=== PATIENT | male | born 1990 | race Caucasian/White ===

== ENCOUNTER → 2022-11-22 06:13 | Outpatient (CLI) | payer OTHER, SELFPAY ==
--- NOTE | 2022-11-22 06:25 | DI.US.S_ITS ---
PROCEDURE: US SCROTUM INDICATIONS: Lower abdominal/left testicle pain TECHNIQUE: Real-time scanning was performed of the scrotum and testicles, with image documentation. Color and pulse Doppler interrogation was performed of both testicles. COMPARISON: None. FINDINGS: Right: Testicle is normal in size at 5.1 x 2.3 x 3.7 cm, and homogenous in echotexture. Epididymis is normal in overall size and morphology. No hydrocele or varicoceles. Overlying scrotal skin is normal in thickness. Left: Testicle is normal in size at 5.8 x 2.5 x 4.0 cm, and homogeneous in echotexture. Epididymis is normal in overall size and morphology. No hydrocele or varicoceles. Overlying scrotal skin is normal in thickness. Doppler: Color and pulse Doppler demonstrate normal and symmetric arterial flow in both testicles. No sonographic abnormality identified at the patient indicated area of pain at the left groin. IMPRESSION: 1. No evidence of testicular torsion or epididymo-orchitis. 2. No sonographic abnormality identified at the patient indicated area of pain at the left groin. Dictated by: Octavio Bar M.D. on 11/22/2022 at 11:33 Approved by: Octavio Bar M.D. on 11/22/2022 at 11:39
== END ==
PROVIDERS: Referring Provider Nurse Practitioner Family; Visit Provider Nurse Practitioner Family
DX: R10.30 Lower abdominal pain, unspecified (principal); N50.812 Left testicular pain
CPT/HCPCS: 76870